=== PATIENT | male | born 1985 | race Caucasian/White ===

== ENCOUNTER 2024-09-27 09:11 | Emergency (ER) | payer MEDICARE, MEDICAID ==
[~2024-09-27] VITALS: Ht 185.4 cm; Wt 110.7 kg
[2024-09-27 09:16] VITALS: BP 119/71; O2SAT 97
[2024-09-27 09:18] VITALS: TEMP 97.3
[2024-09-27] MEDS ORDERED: TRAZ-252 PO (09:26)
[2024-09-27] MEDS ORDERED: AMOX500T2 PO (09:29)
[2024-09-27] MEDS ORDERED: OXCA600T8 PO (09:29)
[2024-09-27] MEDS ORDERED: PEPC1TAB5 PO (09:29)
[2024-09-27 11:54] LABS: BASO % 0.6 % (0.0-1.0); EOS # 0.2 10^3/uL (0.0-0.5); EOS % 3.3 % (0.0-3.0); HEMATOCRIT 42.6 % (42.0-52.0); LYMPH # 1.3 10^3/uL (1.5-5.0); LYMPH % 27.2 % (24.0-44.0); MEAN CORPUSCULAR HEMOGLOBIN 30.9 pg (27.0-33.0); MEAN CORPUSCULAR HGB CONC 35.2 g/dl (32.0-36.5); MEAN CORPUSCULAR VOLUME 87.7 fl (80.0-96.0); MONO # 0.3 10^3/uL (0.0-0.8); MONO % 6.5 % (2.0-8.0); PLATELET COUNT, AUTOMATED 228 10^3/uL (150-450); RED BLOOD COUNT 4.86 10^6/uL (4.30-6.10); WHITE BLOOD COUNT 4.9 10^3/uL (4.0-10.0)
[2024-09-27 12:23] LABS: BLOOD UREA NITROGEN 11 MG/DL (9-23); CALCIUM LEVEL 8.5 MG/DL (8.5-10.1); CARBON DIOXIDE LEVEL 26 MMOL/L (20-31); CHLORIDE LEVEL 107 MMOL/L (98-107); CREATININE FOR GFR 0.73 MG/DL (0.70-1.30); GLOMERULAR FILTRATION RATE > 60.0 (>60); GLUCOSE, FASTING 92 MG/DL (60-100); POTASSIUM SERUM 4.2 MMOL/L (3.5-5.1); SODIUM LEVEL 139 MMOL/L (136-145)
[2024-09-27 12:32] LABS: CPK CREATINE PHOSPHOKINASE 317 U/L (46-171)
[2024-09-27] MEDS ORDERED: NAPR-837 PO (12:55)
== END 2024-09-27 14:06 | disposition home or self-care (01) ==
LOC: M ED 09:11
DX: R53.81 Other malaise (principal); M51.360 Other intervertebral disc degeneration, lumbar region with discogenic back pain only; F12.10 Cannabis abuse, uncomplicated; Z91.030 Bee allergy status; Z79.2 Long term (current) use of antibiotics; Z79.1 Long term (current) use of non-steroidal anti-inflammatories (NSAID); Z79.899 Other long term (current) drug therapy

== ENCOUNTER 2025-01-26 19:29 | Emergency (ER) | payer MEDICARE, MEDICAID ==
[~2025-01-26] VITALS: Ht 185.4 cm; Wt 104.5 kg
[~2025-01-26 19:29] MED LIST: AMOX500T2 PO; HYDR50TA70; NAPR-837 PO; OXCA300T14; OXCA600T8 PO; PEPC1TAB5 PO; PRED10TA2 PO; TRAZ-252 PO
[2025-01-26 22:00] VITALS: TEMP 97.1
[2025-01-27 03:30] VITALS: BP 156/97; O2SAT 99
== END 2025-01-27 04:03 | disposition left against medical advice (07) ==
LOC: M ED 19:29
DX: Z53.21 Procedure and treatment not carried out due to patient leaving prior to being seen by health care provider (principal)

== ENCOUNTER 2025-01-27 17:24 | Emergency (ER) | payer MEDICARE, MEDICAID ==
[~2025-01-27] VITALS: Ht 185.4 cm; Wt 101.6 kg
[2025-01-27 17:34] VITALS: BP 117/72; TEMP 97.3; O2SAT 96
== END 2025-01-28 00:44 | disposition left against medical advice (07) ==
LOC: M ED 17:24
DX: Z53.21 Procedure and treatment not carried out due to patient leaving prior to being seen by health care provider (principal)

== ENCOUNTER 2025-02-19 13:46 | Emergency (ER) | payer MEDICARE, MEDICAID ==
[~2025-02-19] VITALS: Ht 185.4 cm; Wt 102.8 kg
[2025-02-19 14:57] LABS: KETONE, URINE AUTO RFX NEGATIVE (NEGATIVE); LEUKOCYTE ESTERASE UR AUTO RFX NEGATIVE (NEGATIVE); NITRITE, URINE AUTO RFX NEGATIVE (NEGATIVE); RBC, URINE AUTO RFX 0 /HPF (0-3); SQUAM EPITHELIAL CELL UR AURFX 0 /HPF (0-6); WBC, URINE AUTO RFX 1 /HPF (0-3)
[2025-02-19 16:35] LABS: Trichomonas vaginalis (AMP) NOT DETECTED (NEGATIVE)
[2025-02-19 16:58] LABS: GC DNA AMPLIFICATION NEGATIVE (NEGATIVE)
[2025-02-19 17:45] LABS: BASO # 0.0 10^3/uL (0.0-0.2); BASO % 0.5 % (0.0-1.0); EOS # 0.3 10^3/uL (0.0-0.5); EOS % 4.0 % (0.0-3.0); LYMPH # 1.9 10^3/uL (1.5-5.0); LYMPH % 29.6 % (24.0-44.0); MONO # 0.4 10^3/uL (0.0-0.8); MONO % 6.8 % (2.0-8.0); NEUTROPHILS # 3.7 10^3/uL (1.5-8.5); NEUTROPHILS % 58.9 % (36.0-66.0); PLATELET COUNT, AUTOMATED 202 10^3/uL (150-450)
[2025-02-19 17:49] LABS: ALT/SGPT 21 U/L (7.0-40); AST/SGOT 33 U/L (<34); CALCIUM LEVEL 8.9 MG/DL (8.5-10.1); CARBON DIOXIDE LEVEL 24 MMOL/L (20-31); CHLORIDE LEVEL 104 MMOL/L (98-107); CREATININE FOR GFR 0.72 MG/DL (0.70-1.30); GLOMERULAR FILTRATION RATE > 90.0 (>60); POTASSIUM SERUM 4.2 MMOL/L (3.5-5.1); SODIUM LEVEL 141 MMOL/L (136-145)
[2025-02-19 19:32] VITALS: BP 133/85; TEMP 97.8; O2SAT 96
== END 2025-02-19 19:44 | disposition home or self-care (01) ==
LOC: M ED 13:46
DX: K62.5 Hemorrhage of anus and rectum (principal); K40.90 Unilateral inguinal hernia, without obstruction or gangrene, not specified as recurrent; F32.A Depression, unspecified; K21.9 Gastro-esophageal reflux disease without esophagitis; M54.50 Low back pain, unspecified; F25.9 Schizoaffective disorder, unspecified; F12.10 Cannabis abuse, uncomplicated; Z91.030 Bee allergy status; Z79.899 Other long term (current) drug therapy